=== PATIENT | female | born 1935 | race Caucasian/White ===

== ENCOUNTER 2017-04-01 21:52 | Observation (INO) | payer OTHER, BC ==
[~2017-04-01] VITALS: Ht 154.9 cm; Wt 74.6 kg
[~2017-04-01 21:52] MED LIST: ASPIRIN325 MG PO; BENICAR40 MG PO; CHERATUSSIN AC473 ML PO; GUAIATUSSIN AC118 ML PO; ISTALOL5 ML BOTH EYES; LEVAQUIN500 MG PO; METOPROLOL SUCC50 MG PO; OMEPRAZOLE20 MG PO; SINGULAIR10 MG PO; TAMIFLU30 MG PO; TIMOLOL MALEATE15 M1 BOTH EYES; TRICOR48 MG PO; XALATAN2.5 ML BOTH EYES; XARELTO20 MG PO
[2017-04-01 22:30] LABS: HEMATOCRIT 41.7 % (36.0-46.0); HEMOGLOBIN 13.5 G/DL (11.9-15.5); MCH 28.5 PG (29.0-34.0); MCHC 32.4 G/DL (30.0-36.0); PLATELET COUNT 289 K/uL (156-360); RBC DIS.WIDTH-CV 12.7 % (11.8-14.6); RBC DIS.WIDTH-SD 41.5 % (39-53); RED BLOOD COUNT 4.73 M/uL (3.80-5.20); WHITE BLOOD COUNT 8.3 K/uL (4.1-10.2)
[2017-04-01 22:31] LABS: MCV 88.2 FL (83-99)
[2017-04-01 22:54] LABS: CHLORIDE 100 MEQ/L (99-109); CREATININE 0.7 MG/DL (0.6-1.3); GFR ESTIMATE (CALCULATED) > 59 mL/min/; GLUCOSE 104 mg/dL (70-99); POTASSIUM 3.9 MEQ/L (3.7-5.4); UREA NITROGEN (BUN) 24 mg/dL (9-23)
[2017-04-01 22:55] LABS: TROP-I INTERPRETATION NEGATIVE; TROPONIN-I < 0.01 ng/mL (0.0-0.30)
[2017-04-01 23:19] LABS: SODIUM 134 MEQ/L (136-147)
[2017-04-02] MEDS ORDERED: BENICAR HCT 401 EACH PO (01:35)
[2017-04-02] MEDS ORDERED: SOTALOL80 MG PO (01:35)
[2017-04-02 04:42] VITALS: BP 112/51
[2017-04-02 08:13] VITALS: BP 124/56
[2017-04-02 12:37] VITALS: BP 113/51
[2017-04-02 16:03] VITALS: BP 123/58
== END 2017-04-02 18:20 | disposition home or self-care (01) ==
LOC: EME 21:52 → EDOF 04-02 03:03 → ENRESERV 04-02 03:08 → 5WEST 04-02 04:35
DX: I48.0 Paroxysmal atrial fibrillation (principal); Z79.01 Long term (current) use of anticoagulants; I10 Essential (primary) hypertension; I27.20 Pulmonary hypertension, unspecified; E78.5 Hyperlipidemia, unspecified; H40.9 Unspecified glaucoma; E66.9 Obesity, unspecified; Z68.31 Body mass index [BMI] 31.0-31.9, adult; Z90.710 Acquired absence of both cervix and uterus; Z82.49 Family history of ischemic heart disease and other diseases of the circulatory system; Z82.0 Family history of epilepsy and other diseases of the nervous system
CPT/HCPCS: 71046; 80048; 84484; 85027; 93005; 93306; 99281; 99285; G0378; J7030

== ENCOUNTER 2017-04-04 00:48 | Emergency (ER) | payer OTHER, BC ==
[~2017-04-04] VITALS: Ht 154.9 cm; Wt 74.6 kg
[~2017-04-04 00:48] MED LIST changes: +BENICAR HCT 401 EACH PO; +SOTALOL80 MG PO
[2017-04-04 01:20] LABS: HEMATOCRIT 41.5 % (36.0-46.0); HEMOGLOBIN 13.1 G/DL (11.9-15.5); MCH 28.7 PG (29.0-34.0); MCHC 31.6 G/DL (30.0-36.0); MCV 90.8 FL (83-99); PLATELET COUNT 304 K/uL (156-360); RBC DIS.WIDTH-CV 13.1 % (11.8-14.6); RED BLOOD COUNT 4.57 M/uL (3.80-5.20); WHITE BLOOD COUNT 8.8 K/uL (4.1-10.2)
[2017-04-04 01:31] LABS: CHLORIDE 105 mEq/L (99-109)
[2017-04-04 01:32] LABS: GLUCOSE 96 mg/dL (70-99)
[2017-04-04 01:36] LABS: CREATININE 0.8 mg/dL (0.6-1.3); GFR ESTIMATE (CALCULATED) > 59 mL/min/
[2017-04-04 01:37] LABS: UREA NITROGEN (BUN) 24 mg/dL (9-23)
[2017-04-04 01:38] LABS: INTER. NORMALIZED RATIO 1.7
[2017-04-04 01:39] LABS: SODIUM 142 mEq/L (136-147)
[2017-04-04 01:40] LABS: PTT 46.4 SEC (25-37)
[2017-04-04 01:44] LABS: TROP-I INTERPRETATION NEGATIVE; TROPONIN-I < 0.01 ng/mL (0.0-0.30)
[2017-04-04 02:52] VITALS: BP 114/72
== END 2017-04-04 02:53 | disposition home or self-care (01) ==
LOC: EME 00:48
DX: I48.91 Unspecified atrial fibrillation (principal); R00.2 Palpitations; Z79.01 Long term (current) use of anticoagulants; I10 Essential (primary) hypertension; E78.5 Hyperlipidemia, unspecified; J45.909 Unspecified asthma, uncomplicated; H40.9 Unspecified glaucoma
CPT/HCPCS: 71046; 80048; 84484; 85027; 85610; 85730; 93005; 99281; 99283